=== PATIENT | female | born 1990 | race Caucasian/White ===

== ENCOUNTER 2017-08-23 17:48 | Emergency (ER) | payer MEDICAID ==
[2017-08-23] MEDS ORDERED: LORazepam 2 MG/ML INJ IVP ONE ×2 (17:58→19:04)
[2017-08-23] MEDS ORDERED: NS 1,000 ML IV ONE (17:58)
--- NOTE | 2017-08-23 18:10 | EDPHY ---
H & P Time Seen by Provider: 08/23/17 18:07 HPI/ROS: CHIEF COMPLAINT: Seizure versus possible syncope HISTORY OF PRESENT ILLNESS: 26-year-old female presents to the emergency department by ambulance after having a witnessed possible seizure. The boyfriend at bedside states that the the patient had generalized tonic-clonic activity lasting approximately 5 minutes. She then had a period where she was confused that lasted approximately 10 minutes consistent with being postictal. She did not bite her tongue. She was not incontinent of urine. Approximately 2 months ago she had similar symptoms and was seen at [facility]. Apparently had similar symptoms 2 days prior to that. She had a CT scan of her head which was negative. Her CO2 was normal at 24. They consulted with a neurologist and she was started on Keppra twice daily. Patient states that she stop the Keppra 3 weeks ago because she did not like how it made her feel. She feels nauseous. She does report taking her propranolol as needed for symptoms of anxiety and she thinks that she may have taken this today. She denies a headache. She feels nauseous. She was given Zofran by EMS. Last menstrual period was 1 week ago and denies . REVIEW OF SYSTEMS: Constitutional: No fever, no chills. Eyes: No double or blurry vision. ENT: No sore throat. Respiratory: No cough, no shortness of breath. Cardiac: No chest pain. Gastrointestinal: Nausea. No abdominal pain, vomiting or diarrhea. Genitourinary: No dysuria. Musculoskeletal: No neck or back pain. Skin: No rashes. Neurological: No headache. Past Medical/Surgical History: Seizure [address] scan of her brain Social History: Single Smoking Status: Former smoker Physical Exam: General Appearance: Alert, no distress. Boyfriend at bedside. No physical signs of trauma to her head. She does not smell of alcohol. Eyes: Pupils equal and round. Extraocular motions are all intact. ENT: Mouth: Mucous membranes moist. No tongue abrasion or laceration. Respiratory: No wheezing, rhonchi, or rales, lungs are clear to auscultation. Cardiovascular: Regular rate and rhythm. Gastrointestinal: Abdomen is soft and nontender, no masses, no rebound or guarding, bowel sounds normal. Neurological: Alert and oriented x 3, cranial nerves II through XII grossly intact Skin: Warm and dry, no rashes. Musculoskeletal: Nontender to palpate along the cervical, thoracic or lumbar spine. Neck is supple. Extremities: Full range of motion and no peripheral edema. Psychiatric: Patient is oriented X 3, there is no agitation. Constitutional: Initial Vital Signs Temperature (C) 36.7 C 08/23/17 18:01 Heart Rate 67 08/23/17 18:01 Respiratory Rate 18 08/23/17 18:01 Blood Pressure 107/67 08/23/17 18:01 O2 Sat (%) 91 L 08/23/17 18:01 O2 Delivery Mode Room Air Allergies/Adverse Reactions: No Known Allergies Allergy (Unverified 08/23/17 17:56) Home Medications: Medication Instructions Recorded Adderall 10 MG (*) 08/23/17 Propranolol HCl 08/23/17 Suboxone 4 mg-1 mg Sl Film 08/23/17 Medical Decision Making - Diagnostics EKG Interpretation: EKG reviewed by Dr. Deepika Andrews and revealed normal sinus rhythm without evidence of Brugada syndrome, WPW, or hypertrophic cardiomyopathy. See interpretation in trace master. ED Course/Re-evaluation: 26-year-old female presents to the emergency department by ambulance after having a witnessed seizure by her boyfriend. Laboratory studies reveal CO2 of 18. She was given 1 mg of Ativan IV. Her visit from [facility] was reviewed in [facility] and the benign a normal CT scan of her brain. She was started on Keppra at that time. I spoke with the on-call neurologist, Dr. Charly Lassiter, who recommended giving the patient 1 amp of IV Keppra now and having her continue 500 mg twice daily of Keppra daily until they see her in the office tomorrow or Monday. They will discuss with her alternative medications that she can take for seizures. Patient was comfortable with this plan. She understands that she will not drive a car or operate any machinery until she is cleared by neurologist. She was discharged home with her boyfriend and his mother. Differential Diagnosis: Seizure including but not limited to electrolyte abnormality, alcohol withdrawal , medication noncompliance, head injury, and breakthrough seizure. - Data Points Laboratory Results: Laboratory Results 08/23/17 17:40 08/23/17 17:40 08/23/17 08/23/1717 17:40 17:40 17:40 WBC 4.29 10^3/uL 10^3/uL (3.80-9.50) RBC 4.61 10^6/uL 10^6/uL (4.18-5.33) Hgb 15.2 g/dL g/dL (12.6-16.3) Hct 42.5 % % (38.0-47.0) MCV 92.2 fL fL (81.5-99.8) MCH 33.0 pg pg (27.9-34.1) MCHC 35.8 g/dL g/dL (32.4-36.7) RDW 11.7 % % (11.5-15.2) Plt Count 300 10^3/uL 10^3/uL (150-400) MPV 9.6 fL fL (8.7-11.7) Neut % (Auto) 66.0 % % (39.3-74.2) Lymph % (Auto) 27.7 % % (15.0-45.0) [place] % (Auto) 5.1 % % (4.5-13.0) Eos % (Auto) 0.5 % L % (0.6-7.6) Baso % (Auto) 0.5 % % (0.3-1.7) Nucleat RBC Rel Count 0.0 % % (0.0-0.2) Absolute Neuts (auto) 2.83 10^3/uL 10^3/uL (1.70-6.50) Absolute Lymphs (auto) 1.19 10^3/uL 10^3/uL (1.00-3.00) Absolute Monos (auto) 0.22 10^3/uL L 10^3/uL (0.30-0.80) Absolute Eos (auto) 0.02 10^3/uL L 10^3/uL (0.03-0.40) Absolute Basos (auto) 0.02 10^3/uL 10^3/uL (0.02-0.10) Absolute Nucleated RBC 0.00 10^3/uL 10^3/uL (0-0.01) Immature Gran % 0.2 % % (0.0-1.1) Immature Gran # 0.01 10^3/uL 10^3/uL (0.00-0.10) Sodium 140 mEq/L mEq/L (134-144) Potassium 4.1 mEq/L mEq/L (3.5-5.2) Chloride 102 mEq/L mEq/L (97-110) Carbon Dioxide 18 mEq/l L mEq/l (22-31) Anion Gap 20 mEq/L H mEq/L (8-16) BUN 10 mg/dL mg/dL (7-23) Creatinine 0.5 mg/dL L mg/dL (0.6-1.0) Estimated GFR > 60 Glucose 124 mg/dL H mg/dL (70-100) Calcium 9.4 mg/dL mg/dL (8.5-10.4) Beta HCG, Qual NEGATIVE Medications Given: Discontinued Medications Sodium Chloride (Ns) 1,000 mls @ 0 mls/hr IV EDNOW ONE; Wide Open PRN Reason: Protocol Stop: 08/23/17 17:59 Last Admin: 08/23/17 18:42 Dose: 1,000 mls Levetiracetam 1,000 mg/ Sodium (Chloride) 110 mls @ 440 mls/hr IV EDNOW ONE Stop: 08/23/17 19:46 Last Admin: 08/23/17 20:09 Dose: 110 mls Lorazepam (Ativan Injection) 1 mg IVP EDNOW ONE Stop: 08/23/17 19:05 Last Admin: 08/23/17 19:16 Dose: 1 mg Departure - Departure Disposition: Home, Routine, Self-Care Clinical Impression: Seizure Condition: Fair Instructions: Recurrent Seizures in Adults (ED) Additional Instructions: Call to arrange for a follow-up appointment with Dr. Charly Lassiter to be seen tomorrow Monday to recheck. Tell them that you were seen in the emergency department and told seen for follow-up this week. Continue Keppra 500mg twice daily seen by neurologist. You should not drive a car or go swimming or do any other activities until cleared by neurologist. Referrals: Charly Lassiter, DO [Medical Doctor] - 1-2 days without fail (Neurologist on-call )
[2017-08-23 18:16] LABS: % IMMATURE GRANULYOCYTES 0.2 % (0.0-1.1); ABSOLUTE IMMATURE GRANULOCYTES 0.01 10^3/uL (0.00-0.10); ADD DIFF? NO; ADD MORPH? NO; ADD SCAN? NO; ATYPICAL LYMPHOCYTE FLAG 20 (0-99); FRAGMENT RBC FLAG 30 (0-99); HEMATOCRIT 42.5 % (38.0-47.0); HEMOGLOBIN 15.2 g/dL (12.6-16.3); LEFT SHIFT FLG 0 (0-99); LIPEMIA HEMOLYSIS FLAG 90 (0-99); MEAN CELL HEMOGLOBIN CONCENTR. 35.8 g/dL (32.4-36.7); MEAN CELL VOLUME 92.2 fL (81.5-99.8); MEAN PLATELET VOLUME 9.6 fL (8.7-11.7); PLATELET CLUMPS FLAG 40 (0-99); PLATELET COUNT 300 10^3/uL (150-400); RED BLOOD CELL COUNT 4.61 10^6/uL (4.18-5.33); RED CELL DISTRIBUTION WIDTH 11.7 % (11.5-15.2)
[2017-08-23 18:31] LABS: ANION GAP 20 mEq/L (8-16); CALCIUM 9.4 mg/dL (8.5-10.4); CARBON DIOXIDE 18 mEq/l (22-31); CHLORIDE 102 mEq/L (97-110); CREATININE 0.5 mg/dL (0.6-1.0); GLOMERULAR FILTRATION RATE > 60; GLUCOSE 124 mg/dL (70-100); POTASSIUM 4.1 mEq/L (3.5-5.2); SODIUM 140 mEq/L (134-144)
[2017-08-23] MEDS ORDERED: levETIRAcetam 1,000 MG in NS 100 ML IV ONE (19:32)
--- NOTE | 2017-08-23 19:35 | CPEKG ---
Heart Rate: 71 RR Interval: 845 P-R Interval: 116 QRSD Interval: 96 QT Interval: 420 QTC Interval: 457 P Traphill: 21 QRS Traphill: -9 T Wave Traphill: -31 EKG Severity - ABNORMAL ECG - EKG Impression: SINUS RHYTHM EKG Impression: NONSPECIFIC T ABNORMALITIES, INFERIOR LEADS Electronically Signed By: Deepika Andrews 23-Aug-2017 23:06:02
[2017-08-23 21:26] VITALS: BP 120/70; PULSE 71; RESP 16; TEMP 97.9; O2SAT 95
== END 2017-08-23 21:26 | disposition home or self-care (01) ==
DX: G40.909 Epilepsy, unspecified, not intractable, without status epilepticus (principal); E86.9 Volume depletion, unspecified; Z87.891 Personal history of nicotine dependence
CPT/HCPCS: 96365; J1953; J2060

== ENCOUNTER 2017-09-23 13:06 | Observation (INO) | payer MEDICAID ==
--- NOTE | 2017-09-23 13:05 | EDPHY ---
H & P Constitutional: Initial Vital Signs Temperature (C) 36.3 C 09/23/17 13:26 Heart Rate 72 09/23/17 13:26 Respiratory Rate 20 09/23/17 13:26 Blood Pressure 116/66 09/23/17 13:26 O2 Sat (%) 99 09/23/17 13:26 O2 Delivery Mode Nasal Cannula O2 (L/minute) 2 Allergies/Adverse Reactions: No Known Allergies Allergy (Unverified 08/23/17 17:56) Home Medications: Medication Instructions Recorded Propranolol HCl [Inderal 10mg (*)] 10 mg PO DAILY 08/23/17 Cyclobenzaprine [Flexeril 10 MG 10 mg PO TID PRN 09/23/17 (*)] Fluticasone/Salmeter 250/50Mcg 1 puffs IH BID 09/23/17 [Advair 250/50 (*)] Medical Decision Making ED Course/Re-evaluation: CHIEF COMPLAINT: Fentanyl overdose HISTORY OF PRESENT ILLNESS: The patient is a 23 y/o female arriving via EMS for a possible fentanyl overdose. She took Fentanyl 20 minutes ago and became unconscious after 2 minutes. Her boyfriend called EMS after she lost consciousness. EMS gave her 4 Narcan and established a 16 gauge EJ in her right neck. She became responsive after the Narcan and is currently moving around. She is currently not answering my questions and is agitated. REVIEW OF SYSTEMS: A 10 point review of systems was performed and is negative with the exception of the elements mentioned in the history of present illness. PHYSICAL EXAM: HR, BP, O2 Sat, RR. Temp noted General Appearance: Agitated, alert, well hydrated, appropriate, and non-toxic appearing. Head: Atraumatic without scalp tenderness or obvious injury Eyes: Pupils equal, round, reactive to light and accommodation, EOMI, no trauma , no injection. Ears: Clear bilaterally, no perforation, normal landmarks Nose: Atraumatic, no rhinorrhea, clear. Throat: Mucus membranes moist. Neck: Supple, nontender, no lymphadenopathy. Respiratory: No retractions, no distress, no wheezes, and no accessory muscle use. Lungs are clear to auscultation bilaterally. Cardiovascular: Regular rate and rhythm, no murmurs, rubs, or gallops. Good capillary refill all extremities. Gastrointestinal: Abdomen is soft, nontender, non-distended, no masses, no rebound, no guarding, no peritoneal signs. Musculoskeletal: Normal active ROM of all extremities, atraumatic. Neurological: Alert, appropriate, and interactive. The patient has normal DTRs and non-focal cranial nerves, motor, sensory, and cerebellar exam. Skin: Piloerection, no rashes, good turgor, no nodules on palpation. Past medical history: Seizure Past surgical history: Denies Family history: Denies Social history: Lives in [place], single, works for [employer], polysubstance abuse DIFFERENTIAL DIAGNOSIS: The differential diagnosis for the patient's altered mental status included but was not limited to hypoglycemia, infectious process, electrolyte abnormality, head injury, neurologic process, anemia, cardiac process, and intoxicants. MEDICAL DECISION MAKING: The patient is a 23 y/o female arriving via EMS after becoming unconscious after a fentanyl overdose 20 minutes ago. She was given 4 Narcan by EMS and regained consciousness. On exam she is agitated, not speaking to me, and has piloerection. Plan to give Narcan as needed. BMP, CBC, and labs ordered. 1324: Nurse reports that the patient admits to drinking Fentanyl, but is unsure how much she drank. This Fentanyl was ordered off of the internet from [employer]. The patient and her boyfriend have been on a laureano for 2-3 days. 1404: Consulted with hospitalist service, Dr. Hendricks accepts admission of this patient. - Data Points Laboratory Results: Laboratory Results 09/23/17 13:15 09/23/17 13:15 09/23/17 09/23/17 09/23/17 13:15 13:15 13:15 WBC 3.94 10^3/uL 10^3/uL (3.80-9.50) RBC 3.63 10^6/uL L 10^6/uL (4.18-5.33) Hgb 12.1 g/dL L g/dL (12.6-16.3) Hct 34.4 % L % (38.0-47.0) MCV 94.8 fL fL (81.5-99.8) MCH 33.3 pg pg (27.9-34.1) MCHC 35.2 g/dL g/dL (32.4-36.7) RDW 12.4 % % (11.5-15.2) Plt Count 185 10^3/uL 10^3/uL (150-400) MPV 9.5 fL fL (8.7-11.7) Neut % (Auto) 56.4 % % (39.3-74.2) Lymph % (Auto) 31.5 % % (15.0-45.0) [place] % (Auto) 9.1 % % (4.5-13.0) Eos % (Auto) 1.5 % % (0.6-7.6) Baso % (Auto) 0.5 % % (0.3-1.7) Nucleat RBC Rel Count 0.0 % % (0.0-0.2) Absolute Neuts (auto) 2.22 10^3/uL 10^3/uL (1.70-6.50) Absolute Lymphs (auto) 1.24 10^3/uL 10^3/uL (1.00-3.00) Absolute Monos (auto) 0.36 10^3/uL 10^3/uL (0.30-0.80) Absolute Eos (auto) 0.06 10^3/uL 10^3/uL (0.03-0.40) Absolute Basos (auto) 0.02 10^3/uL 10^3/uL (0.02-0.10) Absolute Nucleated RBC 0.00 10^3/uL 10^3/uL (0-0.01) Immature Gran % 1.0 % % (0.0-1.1) Immature Gran # 0.04 10^3/uL 10^3/uL (0.00-0.10) Sodium 141 mEq/L mEq/L (134-144) Potassium 3.8 mEq/L mEq/L (3.5-5.2) Chloride 103 mEq/L mEq/L (97-110) Carbon Dioxide 22 mEq/l mEq/l (22-31) Anion Gap 16 mEq/L mEq/L (8-16) BUN 10 mg/dL mg/dL (7-23) Creatinine 0.7 mg/dL mg/dL (0.6-1.0) Estimated GFR > 60 Glucose 272 mg/dL H mg/dL (70-100) Calcium 8.9 mg/dL mg/dL (8.5-10.4) Beta HCG, Qual NEGATIVE Ethyl Alcohol < 10 mg/dL mg/dL (0-10) Departure - Departure Disposition: [facility] Inpatient Acute Clinical Impression: Accidental fentanyl overdose Qualifiers: Encounter type: initial encounter Qualified Code(s): T40.4X1A - Poisoning by other synthetic narcotics, accidental (unintentional), initial encounter Condition: Fair Report Scribed for: Alex Gonzalez Report Scribed by: Melly Murillo Date of Report: 09/23/17 Time of Report: 13:05
[2017-09-23 13:36] LABS: ABSOLUTE IMMATURE GRANULOCYTES 0.04 10^3/uL (0.00-0.10); ADD DIFF? NO; ADD MORPH? NO; ADD SCAN? NO; ATYPICAL LYMPHOCYTE FLAG 10 (0-99); FRAGMENT RBC FLAG 0 (0-99); HEMATOCRIT 34.4 % (38.0-47.0); HEMOGLOBIN 12.1 g/dL (12.6-16.3); LEFT SHIFT FLG 0 (0-99); LIPEMIA HEMOLYSIS FLAG 90 (0-99); MEAN CELL HEMOGLOBIN 33.3 pg (27.9-34.1); MEAN CELL HEMOGLOBIN CONCENTR. 35.2 g/dL (32.4-36.7); MEAN CELL VOLUME 94.8 fL (81.5-99.8); MEAN PLATELET VOLUME 9.5 fL (8.7-11.7); PLATELET CLUMPS FLAG 0 (0-99); PLATELET COUNT 185 10^3/uL (150-400); RED BLOOD CELL COUNT 3.63 10^6/uL (4.18-5.33); RED CELL DISTRIBUTION WIDTH 12.4 % (11.5-15.2)
[2017-09-23 13:49] LABS: ANION GAP 16 mEq/L (8-16); CALCIUM 8.9 mg/dL (8.5-10.4); CARBON DIOXIDE 22 mEq/l (22-31); CHLORIDE 103 mEq/L (97-110); CREATININE 0.7 mg/dL (0.6-1.0); ETHANOL SERUM < 10 mg/dL (0-10); GLOMERULAR FILTRATION RATE > 60; GLUCOSE 272 mg/dL (70-100); POTASSIUM 3.8 mEq/L (3.5-5.2); SODIUM 141 mEq/L (134-144)
[2017-09-23] MEDS ORDERED: ACETAMINOPHEN 325 MG TAB PO PRN (14:35)
[2017-09-23] MEDS ORDERED: ONDANSETRON DISINTEGRATING 4 MG TAB PO PRN (14:35)
[2017-09-23] MEDS ORDERED: NALOXONE HCL 0.4 MG/ML INJ IVP PRN (14:39)
--- NOTE | 2017-09-23 15:40 | GHP ---
[f rep st] HISTORY AND PHYSICAL DATE OF ADMISSION: 09/23/2017 CHIEF COMPLAINT: Respiratory depression. HISTORY OF PRESENT ILLNESS: The patient is a 26-year-old female with past medical history notable only for syncope/seizure event one month ago, presenting with unintentional Fentanyl overdose. The patient was found by her boyfriend, appearing unresponsive. EMS was called and they gave her one dose of Narcan (per marketing and communications officer at the bedside). The patient was briefly revived , then later more somnolent, given 2 more doses of Narcan in the ER. She reports she started taking Fentanyl by mouth mixed in fluid, approximately 12: 30p today. No prior OD history. Denies any other drug use today. No alcohol use. No nicotine use. "Nicorette would have been a better choice today." Hx of Heroin addiction, on Subutex, but stopped 1 month ago. She did well until finals approached and she got stressed and started Fentanyl just 2 days ago. She reports she has finals tomorrow and would like to get back to studying. Poor appetite, "i dont like food". No nausea, vomiting today. No pain other than IV in her right neck. Denies intentional OD, SI/HI. REVIEW OF SYSTEMS: A complete 10-point review of systems was negative, except for intermittent nausea while she was on Subutex, and intermittent muscle spasms (but nothing recent). Otherwise, review of systems was negative, including chest pain, headaches, visual changes, or recent seizure activity. PAST MEDICAL HISTORY: Notable only for seizure (Per pt it was syncope induced) , and very short use of Keppra. PAST SURGICAL HISTORY: No surgical history. ALLERGIES: No allergies, other than environmental. FAMILY HISTORY: Notable for alcoholism and occasional drug dependence. 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 No tobacco use or alcohol use at all. History of heroin use and current Fentanyl. MEDICATIONS: p.r.n. Zofran, propranolol, Fluticasone, Flexeril. PHYSICAL EXAMINATION: VITAL SIGNS: 115/66, 82, HR 72, RR16 while at the bedside. O2 99% on 2 L, 95% RA. Afebrile 36.3. GENERAL: Pleasant, no acute physical distress, slurred her words and appears slightly under the influence but still answers questions candidly and appropriately. HEENT: Pupils are approximately 6 mm bilaterally, responsive to light, anicteric. No nasal discharge, no nasal erosions. No cervical lymphadenopathy. HEART: Rate regular. No murmurs, rubs or gallops. RESPIRATORY: Clear without wheezes or rhonchi. Currently using full excursions to breath. ABDOMEN: Soft, nontender. Normal bowel sounds. EXTREMITIES: No swelling, NEURO: moving all extremities within normal limits, pupils equal, reactive. The patient was not stood up to evaluate her gait. SKIN: No rash. No track olivera. OBJECTIVE: Labs notable for normal white blood cell count 3.94, very mild anemia, with hemoglobin of 12.1, normal platelets. Chemistry is normal with the exception of elevated glucose at 272, creatinine is 0.7. Alcohol level less than 10. Drug screen not returned. ASSESSMENT: A 26-year-old female with history of syncope induced seizure, presents for an unintentional Fentanyl overdose, after ingesting Fentanyl by mouth, unknown quantity. The patient has been given 3 doses of Narcan, currently alert, oriented, and maintaining her 02 sat. Given she required multiple narcan doses and had an oral ingestion it is unclear if respiratory depression will return so planning OBS admit. PLAN: Fentanyl overdose: Admit to observation. Bedside O2 and EKG monitoring, Narcan p.r.n. History of seizure: The patient denies this is related to any kind of drug use and it may have been related to a copper IUD at that time. Encouraged the patient to eat and drink today, and as long as she remains normotensive, would not pursue any further workup at this time. Full code. DISCHARGE PLAN: Pending patient's stability off further doses of Narcan. /[id number]/MODL MTDD
[2017-09-23] MEDS: CYCLOBENZAPRINE 10 MG TAB PO PRN ×2 (17:43→23:49)
[2017-09-23] MEDS: FLUTICASONE/SALMETER 250/50MCG DISKUS IH SCH (23:13)
[2017-09-24] MEDS: FLUTICASONE/SALMETER 250/50MCG DISKUS IH SCH (08:46)
[2017-09-24] MEDS ORDERED: PROPRANOLOL HCL 10 MG TAB PO SCH (09:00)
[2017-09-24 09:32] VITALS: PULSE 91; TEMP 99
--- NOTE | 2017-09-24 10:54 | PDDCSUM ---
Discharge Summary Discharge Summary: 26 yo female who was admitted due to recreational overdose with Fentanyl which she reports she bought from [employer] via mail. She as admitted into the ICU. She did not have any resp failure. VSS normalized. She is now on RA and wants discharge. She has a hx of heroin abuse. Per nursing report, she and her boyfriend both shot up likely heroin in her room yesterday. Her boyfriend was found on the floor of the visitor bathroom unresponsive with syringe in place. He was sent to the E.D for evaluation. Treatment options will be provided by social service worker, but doubt that she is ready or wants to quit at this time. DDX: -Heroin abuse -Fentanyl overdose -Polysubstance abuse Exam: on RA NAD AAOX3 RRR CTA B S/NT/ND NO LE EDEMA MEDS: SEE MED REC. NO NEW MED WERE GIVEN F/U: WITH PCP IN ONE WEEK IF SHE IS WILLING TO TOTAL TIME SPENT ON DISCHARGE IS 35 MINS PLAN D/W MULTIPLE MEMBERS OF THE ICU TEAM
[2017-09-24 11:40] VITALS: BP 158/89; RESP 28; O2SAT 95
== END 2017-09-24 11:30 | disposition home or self-care (01) ==
LOC: EDUNIT# → INTOOBSV 14:06 → EEVIPCON 14:06 → F2N 15:04
PROVIDERS: ADMIT Internal Medicine Geriatric Medicine; ATTEND Internal Medicine Geriatric Medicine
DX: T40.4X1A Poisoning by other synthetic narcotics, accidental (unintentional), initial encounter (principal); F11.10 Opioid abuse, uncomplicated
CPT/HCPCS: G0378 ×2; 80305; G0480

== ENCOUNTER 2018-05-10 23:44 | Emergency (ER) | payer MEDICAID, OTHER ==
--- NOTE | 2018-05-11 00:16 | EDPHY ---
H & P Stated Complaint: ETOH - Poly drug use Time Seen by Provider: 05/11/18 00:15 HPI/ROS: HPI CHIEF COMPLAINT: Polysubstance abuse, alcohol, heroin, marijuana HISTORY OF PRESENT ILLNESS: 27-year-old female, she presents emergency room by EMS and police for polysubstance abuse. She was drinking alcohol this evening had multiple glasses of wine. Additionally shot up IV heroin, presents emergency room intoxicated and sleepy. She was due to go to the [facility], however her boyfriend is there and they did not want a couple there. The boy went went to the [facility] and she came to the ER. Upon arrival she is alert however sleepy, appears intoxicated, slurring her speech. Past Medical History: Denies significant medical history Past Surgical History: Denies significant surgical history Social History: Polysubstance abuse Family History: Noncontributory ROS REVIEW OF SYSTEMS: A comprehensive 10 point review of systems is otherwise negative aside from elements mentioned in the history of present illness. Exam Constitutional intoxicated, sleepy, triage nursing summary reviewed, vital signs reviewed, awake/alert. Eyes normal conjunctivae and sclera, EOMI, PERRLA. HENT normal inspection, atraumatic, moist mucus membranes, no epistaxis, neck supple/ no meningismus, no raccoon eyes. Respiratory clear to auscultation bilaterally, normal breath sounds, no respiratory distress, no wheezing. Cardiovascular rate normal, regular rhythm, no murmur, no edema, distal pulses normal. Gastrointestinal soft, non-tender, no rebound, no guarding, normal bowel sounds, no distension, no pulsatile mass. Genitourinary no CVA tenderness. Musculoskeletal no midline vertebral tenderness, full range of motion, no calf swelling, no tenderness of extremities, no meningismus, good pulses, neurovascularly intact. Skin pink, warm, & dry, no rash, skin atraumatic. Neurologic sleepy, awake, alert and oriented x 3, AAOx3, moves all 4 extremities equally, motor intact, sensory intact, CN II-XII intact, normal cerebellar, normal vision, intoxicated, slurring speech. Psychiatric normal mood/affect. Heme/Lymph/Immune no lymphadenopathy. Differential Diagnosis: Includes but is not limited to in a particular order polysubstance abuse, acute alcohol intoxication, alcohol abuse, heroin abuse, heroin overdose. Medical Decision Making: Plan for this patient IV establishment blood draw, IV fluid bolus, shelter monitor, pulse ox, drug screen, alcohol level watch for worsening sedation. Monitor for sobriety. Once sober patient be discharged home. Re-evaluation: Patient's serum alcohol level noted to be 0 however patient came in intoxicated sleepy. Her drug screen is positive for benzos, opioids and marijuana this explains her lethargy. 0523: Patient re-examined at this time she was up ambulating and answering questions appropriately. She did go to the bathroom. She is now back in bed resting. 0631: Patient is still sobering from her benzo marijuana and alcohol. Patient still needs more time for sobriety. Signed over at 7:00 a.m. Shift change to Dr. Lebron. Source: Patient, Police, EMS - Personal History Current Tetanus/Diphtheria Vaccine: Unsure Current Tetanus Diphtheria and Acellular Pertussis (TDAP): Unsure - Medical/Surgical History Hx Asthma: Yes Hx Chronic Respiratory Disease: No Hx Diabetes: No Hx Cardiac Disease: No Hx Renal Disease: No Hx Cirrhosis: No Hx Alcoholism: No Hx HIV/AIDS: No Hx Splenectomy or Spleen Trauma: No Other PMH: seizures, opioid addiction, fentanyl OD 2016 - Social History Smoking Status: Former smoker Constitutional: Initial Vital Signs Temperature (C) 37.0 C 05/10/18 23:51 Heart Rate 112 H 05/10/18 23:51 Respiratory Rate 16 05/10/18 23:51 Blood Pressure 122/81 H 05/10/18 23:51 O2 Sat (%) 96 05/10/18 23:51 O2 Delivery Mode Room Air Allergies/Adverse Reactions: No Known Allergies Allergy (Unverified 08/23/17 17:56) Home Medications: Medication Instructions Recorded Propranolol HCl [Inderal 10mg (*)] 10 mg PO DAILY 08/23/17 Cyclobenzaprine [Flexeril 10 MG 10 mg PO TID PRN 09/23/17 (*)] Fluticasone/Salmeter 250/50Mcg 1 puffs IH BID 09/23/17 [Advair 250/50 (*)] Medical Decision Making - Data Points Laboratory Results: Laboratory Results 05/11/18 00:33 05/11/18 00:33 05/11/18 05/11/18 05/11/18 04:45 00:33 00:33 WBC RBC Hgb Hct MCV MCH MCHC RDW Plt Count MPV Neut % (Auto) Lymph % (Auto) [place] % (Auto) Eos % (Auto) Baso % (Auto) Nucleat RBC Rel Count Absolute Neuts (auto) Absolute Lymphs (auto) Absolute Monos (auto) Absolute Eos (auto) Absolute Basos (auto) Absolute Nucleated RBC Immature Gran % Immature Gran # Sodium 137 mEq/L mEq/L (135-145) Potassium 3.8 mEq/L mEq/L (3.3-5.0) Chloride 105 mEq/L mEq/L (97-110) Carbon Dioxide 24 mEq/l mEq/l (22-31) Anion Gap 8 mEq/L mEq/L (8-16) BUN 17 mg/dL mg/dL (7-23) Creatinine 0.7 mg/dL mg/dL (0.6-1.0) Estimated GFR > 60 Glucose 99 mg/dL mg/dL (70-100) Calcium 9.6 mg/dL mg/dL (8.5-10.4) Beta HCG, Qual NEGATIVE Urine Opiates Screen NON-NEGATIVE H (NEGATIVE) Urine Barbiturates NEGATIVE (NEGATIVE) Ur Phencyclidine Scrn NEGATIVE (NEGATIVE) Ur Amphetamine Screen NEGATIVE (NEGATIVE) U Benzodiazepines Scrn NON-NEGATIVE H (NEGATIVE) Urine Cocaine Screen NEGATIVE (NEGATIVE) U Marijuana (THC) Screen NON-NEGATIVE H (NEGATIVE) Ethyl Alcohol < 10 mg/dL mg/dL (0-10) 05/11/18 00:33 WBC 3.67 10^3/uL L 10^3/uL (3.80-9.50) RBC 3.68 10^6/uL L 10^6/uL (4.18-5.33) Hgb 12.0 g/dL L g/dL (12.6-16.3) Hct 35.3 % L % (38.0-47.0) MCV 95.9 fL fL (81.5-99.8) MCH 32.6 pg pg (27.9-34.1) MCHC 34.0 g/dL g/dL (32.4-36.7) RDW 12.5 % % (11.5-15.2) Plt Count 246 10^3/uL 10^3/uL (150-400) MPV 8.9 fL fL (8.7-11.7) Neut % (Auto) 62.9 % % (39.3-74.2) Lymph % (Auto) 24.0 % % (15.0-45.0) [place] % (Auto) 11.4 % % (4.5-13.0) Eos % (Auto) 1.1 % % (0.6-7.6) Baso % (Auto) 0.3 % % (0.3-1.7) Nucleat RBC Rel Count 0.0 % % (0.0-0.2) Absolute Neuts (auto) 2.31 10^3/uL 10^3/uL (1.70-6.50) Absolute Lymphs (auto) 0.88 10^3/uL L 10^3/uL (1.00-3.00) Absolute Monos (auto) 0.42 10^3/uL 10^3/uL (0.30-0.80) Absolute Eos (auto) 0.04 10^3/uL 10^3/uL (0.03-0.40) Absolute Basos (auto) 0.01 10^3/uL L 10^3/uL (0.02-0.10) Absolute Nucleated RBC 0.00 10^3/uL 10^3/uL (0-0.01) Immature Gran % 0.3 % % (0.0-1.1) Immature Gran # 0.01 10^3/uL 10^3/uL (0.00-0.10) Sodium Potassium Chloride Carbon Dioxide Anion Gap BUN Creatinine Estimated GFR Glucose Calcium Beta HCG, Qual Urine Opiates Screen Urine Barbiturates Ur Phencyclidine Scrn Ur Amphetamine Screen U Benzodiazepines Scrn Urine Cocaine Screen U Marijuana (THC) Screen Ethyl Alcohol Medications Given: Discontinued Medications Sodium Chloride (Ns) 1,000 mls @ 0 mls/hr IV ONCE ONE PRN Reason: Wide Open Stop: 05/11/18 00:19 Last Admin: 05/11/18 00:44 Dose: Not Given Departure - Departure Disposition: Home, Routine, Self-Care Clinical Impression: Polysubstance abuse Condition: Good Instructions: Polysubstance Abuse (ED) Referrals: Patient,NotPresent [Primary Care Provider] - As per Instructions
[2018-05-11] MEDS ORDERED: NS 1,000 ML IV ONE ×2 (00:18→07:08)
[2018-05-11 00:40] LABS: PLATELET COUNT 246 10^3/uL (150-400)
[2018-05-11 04:39] VITALS: BP 128/74
== END 2018-05-11 08:00 | disposition home or self-care (01) ==
LOC: EEVIPCON 23:44
DX: F10.10 Alcohol abuse, uncomplicated (principal); F11.10 Opioid abuse, uncomplicated; F12.10 Cannabis abuse, uncomplicated
CPT/HCPCS: 80305; G0480

== ENCOUNTER 2018-10-01 21:36 | Emergency (ER) | payer SELFPAY ==
[2018-10-01] MEDS ORDERED: TDAP ADULT 0.5 ML INJ (BOOSTRIX) IM ONE (21:51)
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
[2018-10-01 21:56] VITALS: BP 108/60
== END 2018-10-01 22:18 | disposition home or self-care (01) ==
LOC: EDUNIT#
PROC: 0HQEXZZ Repair Left Lower Arm Skin, External Approach (ICD-10-PCS; principal; 2018-10-01)
DX: S61.512A Laceration without foreign body of left wrist, initial encounter (principal); G40.909 Epilepsy, unspecified, not intractable, without status epilepticus; F11.20 Opioid dependence, uncomplicated; W26.8XXA Contact with other sharp object(s), not elsewhere classified, initial encounter; Y92.9 Unspecified place or not applicable; Y93.9 Activity, unspecified; Y99.9 Unspecified external cause status; Z87.891 Personal history of nicotine dependence

== ENCOUNTER 2018-10-02 16:48 | Inpatient (IN) | payer MEDICAID ==
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
[2018-10-02 17:32] LABS: PLATELET COUNT 228 10^3/uL (150-400)
[2018-10-02] MEDS ORDERED: IBUPROFEN 600 MG TAB PO ONE (20:59)
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
--- NOTE | 2018-10-02 23:39 | ASMTTCLDSP ---
TLC Discharge Disposition Disposition: Answers: Admit Discharge Concerns/Recommendations: Notes: In consultation with [facility] ED physician, Dale Montes MD and on-call psychiatrist, Michelle Morales MD, both concurred that pt appears to meet 27-65 criteria requiring psychiatric hospitalization as pt appears to be at risk of harm to self due to a mental illness condition. Pt was given the 3N prohibited belongings list while in the ED. For inpatient Michelle Morales MD admission, the following psychiatrist agreed to accept patient for [facility] Date Signed: 10/02/2018 11:38 PM Electronically Signed By:Antonieta Arnold
[2018-10-03] MEDS ORDERED: MAG HYDROX/AL HYDROX/SIMETH 30 ML UDCUP PO PRN (00:08)
[2018-10-03] MEDS ORDERED: MAGNESIUM HYDROXIDE 30 ML UDCUP PO PRN (00:08)
[2018-10-03] MEDS ORDERED: OLANZapine 5 MG TAB PO PRN (00:10)
[2018-10-03] MEDS: ACETAMINOPHEN 325 MG TAB PO PRN ×3 (00:16→20:35)
[2018-10-03] MEDS: LORazepam 0.5 MG TAB PO PRN (00:17)
[2018-10-03] MEDS: NICOTINE POLACRILEX 2 MG GUM B PRN ×6 (00:25→20:37)
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
[2018-10-03] MEDS: IBUPROFEN 200 MG TAB PO PRN ×2 (09:19→16:37)
[2018-10-03] MEDS: FLUTICASONE/SALMETER 250/50MCG DISKUS IH SCH ×2 (10:16→20:34)
--- NOTE | 2018-10-03 11:56 | ASMTBHDC ---
Notes Note: Notes: CC was able to confirm client's discharge follow up care with [facility]: Follow up with: [facility] [address] [place] [address] 2nd Floor, [facility] Intake Appt: MondayOctober 12 (10/12/18) at 2:30pm with Wilda (at the address above, 2nd floor). Date Signed: 10/03/2018 11:55 AM Electronically Signed By:Abdon Graves
[2018-10-03] MEDS ORDERED: PNEUMOCOCCAL 0.5ML VACCINE VIAL (PNEUMOVAX 23) IM ONE (13:51)
--- NOTE | 2018-10-03 15:38 | ASMTCMCOM ---
CM Note CM Note Notes: CC faxed letter to [facility] ; asking the Track Mechanic to excuse client for her court date due to still being inpatient, etc.* Date Signed: 10/03/2018 03:37 PM Electronically Signed By:Abdon Graves
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
--- NOTE | 2018-10-03 17:49 | PDMN ---
Medical Necessity Medical necessity: Pt meets inpt criteria per MD order and [id number], Major Depressive Disorder, Adult: Inpatient Care. 27 y/o admitted on M1 hold, possible suicidality, w/major depressive disorder, single episode, severe, also PTSD by hx. Pt requires inpt psychiatric hospitalization for further eval/ treatment of above.
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
[2018-10-03] MEDS ORDERED: CYCLOBENZAPRINE 10 MG TAB PO SCH (21:00)
[2018-10-04] MEDS: IBUPROFEN 200 MG TAB PO PRN (07:39)
[2018-10-04] MEDS: LORazepam 0.5 MG TAB PO PRN ×3 (07:47→16:42)
[2018-10-04] MEDS: FLUTICASONE/SALMETER 250/50MCG DISKUS IH SCH ×3 (08:07→22:31)
[2018-10-04] MEDS: NICOTINE POLACRILEX 2 MG GUM B PRN ×4 (11:12→22:29)
[2018-10-04] MEDS ORDERED: SUMAtriptan 6 MG/0.5 ML VIAL SC ONE ×2 (11:22→12:13)
[2018-10-04] MEDS: ONDANSETRON DISINTEGRATING 4 MG TAB PO PRN (12:23)
--- NOTE | 2018-10-04 14:41 | ASMTCMCOM ---
CM Note CM Note Notes: CC was able to contact [facility] ([phone]) and speak to her directly, CC encouraged MOJose to come out to [place] to help support client and advocate on her behalf given the intensity of her alleged felony charges, etc. 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 [facility] was provided with all necessary hospital contact information, etc. Date Signed: 10/04/2018 02:40 PM Electronically Signed By:Abdon Graves
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
[2018-10-05] MEDS: FLUTICASONE/SALMETER 250/50MCG DISKUS IH SCH ×2 (08:34→19:18)
[2018-10-05] MEDS: ONDANSETRON DISINTEGRATING 4 MG TAB PO PRN (08:34)
[2018-10-05] MEDS: LORazepam 0.5 MG TAB PO PRN ×3 (08:35→18:15)
[2018-10-05] MEDS: NICOTINE POLACRILEX 2 MG GUM B PRN ×3 (10:42→17:31)
[2018-10-05] MEDS: IBUPROFEN 200 MG TAB PO PRN (10:42)
[2018-10-05] MEDS: OXcarbazepine 300 MG TAB PO SCH ×2 (12:09→19:18)
--- NOTE | 2018-10-05 13:05 | ASMTCMCOM ---
CM Note CM Note Notes: CC checked in with ct. who said that she is doing OK. Ct. reported that she is very anxious. Per ct. MOC is likely to come to [place] on Mon. to help her pack her belongings and clear her apartment. Ct. is planning on attending court and leave [place] with her mother ESTEPHANIE pending court outcome. Discuss with ct. [facility] and services at [facility] if she stays in [facility]. CC called [facility] Enrique who reported that she is planning on coming to [facility] on 10/10. Let [facility] know that ct. may be discharged prior to her arrival to [facility]. [facility] requested to speak with Dr. Li as she believes that if ct. starts new meds. she will have to be monitored on the unit for several days. Date Signed: 10/05/2018 01:04 PM Electronically Signed By:Gia Gustafson
--- NOTE | 2018-10-05 15:05 | SOAPPROG ---
SOAP Progress Note Assessment/Plan: Assessment: Plan: 10/04/18 17:09 Opening up more. Will await mother's travel plans and continue to provide supportive, safe environment for pt. 10/05/18 15:09 Anxiety/mood: Remains quite anxious. This is clearly a chronic condition. Will start Trileptal at low dose of 150mg BID, monitor. Subjective: Pt seen, discussed with staff. Reports feeling "anxious". 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 She states she will typically wake up and vomit due to this anxiety. She is taking Zofran with good effect for the nausea. Discussed various possible treatments for the generalized anxiety. She states the SSRI's have not been helpful and that she doesn't do well on antidepressants in general. She has taken benzo's, but notes rather rapid tolerance and fear of abuse potential. She is agreeable to a trial of a OTIS-active anticonvulsant and we discussed the options for that. She prefers a trial of Trileptal. The risks, benefits and alternatives of this are reviewed with her. She took Lamictal and Keppra when she was having seizures and states she felt calmer, but also excessively sedated and clouded mentally. Objective: Vital Signs Temp Pulse Resp BP Pulse Ox 36.8 C 99 14 119/67 96 10/05/18 06:00 10/05/18 06:00 10/05/18 06:00 10/05/18 06:00 10/05/18 06:00 MSE: Well-groomed, pleasant and coop. Affect is brighter, though anxious. Mood is "anxious, definitely not depressed." TP is linear. TC reveals no psychosis. Denies SI. - Time Spent With Patient Time Spent With Patient: 25" ICD10 Worksheet Patient Problems: Problems Problem Status Onset Severe major depression Acute Suicidal ideation Acute Accidental fentanyl overdose Acute
[2018-10-06] MEDS: LORazepam 0.5 MG TAB PO PRN ×3 (06:50→18:57)
[2018-10-06] MEDS: ONDANSETRON DISINTEGRATING 4 MG TAB PO PRN (06:51)
[2018-10-06] MEDS: FLUTICASONE/SALMETER 250/50MCG DISKUS IH SCH ×2 (08:37→19:32)
[2018-10-06] MEDS: OXcarbazepine 300 MG TAB PO SCH ×2 (08:37→18:55)
[2018-10-06] MEDS: IBUPROFEN 200 MG TAB PO PRN ×2 (09:37→18:20)
[2018-10-06] MEDS: NICOTINE POLACRILEX 2 MG GUM B PRN ×4 (09:47→17:38)
--- NOTE | 2018-10-06 15:08 | ASMTBHDC ---
Notes Note: Notes: The patient reported that the medication relieved her physical pain although she remains anxious. She reported difficulty sleeping including "waking every hour" overnight. She was tearful during the interaction with this ticket writer. The patient reported that her mother will be in [place] on Monday (10/08/18) at the earliest or Monday (10/10/18) at the latest. She has not confirmed when she will arrive to support the patient. Date Signed: 10/06/2018 03:08 PM Electronically Signed By:Hazel Solorio
--- NOTE | 2018-10-06 17:26 | SOAPPROG ---
SOAP Progress Note Assessment/Plan: Assessment: Per Dr. Li's note: 10/04/18 17:09 Opening up more. Will await mother's travel plans and continue to provide supportive, safe environment for pt. 10/05/18 15:09 Anxiety/mood: Remains quite anxious. This is clearly a chronic condition. Will start Trileptal at low dose of 150mg BID, monitor. Subjective: Pt seen, discussed with staff. Reports feeling "anxious". 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 She states she will typically wake up and vomit due to this anxiety. She is taking Zofran with good effect for the nausea. Discussed various possible treatments for the generalized anxiety. She states the SSRI's have not been helpful and that she doesn't do well on antidepressants in general. She has taken benzo's, but notes rather rapid tolerance and fear of abuse potential. She is agreeable to a trial of a OTIS-active anticonvulsant and we discussed the options for that. She prefers a trial of Trileptal. The risks, benefits and alternatives of this are reviewed with her. She took Lamictal and Keppra when she was having seizures and states she felt calmer, but also excessively sedated and clouded mentally. Plan: 10/06/18 17:23 1. Patient says she thought Trileptal was a "general purpose" med for "whatever my mental health needs." MD tried to explain how it works as a mood stabilizer. She states it has helped to "slow down my thoughts." Patient also says it "got rid of constant tension and in my neck." 2. Patient says she has "terrible sleep anxiety," however, staff report patient slept 8 hrs last night. She claims she woke up "every hour," but staff did not report that. 3. Patient agrees to trial of melatonin for insomnia. She says she has taken before with good effect. 4. MOC is supposed to arrive "Monday at earliest" or "Monday at latest." Patient plans to return with MOC to [place]. 5. VOL Subjective: Patient sitting in chair in front of TV. Patient says she thought Trileptal was a "general purpose" med for "whatever my mental health needs." MD tried to explain how it works as a mood stabilizer. She states it has helped to "slow down my thoughts." Patient also says it "got rid of constant tension and in my neck." Patient says she has "terrible sleep anxiety," however, staff report patient slept 8 hrs last night. She claims she woke up "every hour," but staff did not report that. Patient agrees to trial of melatonin for insomnia. She says she has taken before with good effect. Objective: Vital Signs Temp Pulse Resp BP Pulse Ox 36.9 C 118 H 16 109/68 98 10/06/18 06:00 10/06/18 06:00 10/06/18 06:00 10/06/18 06:00 10/06/18 06:00 MSE: Affect: Irritable Mood: "OK" TP: Linear TC: Denies any SI/HI, no paranoia Insight/Judgment: Poor - Time Spent With Patient Time Spent With Patient: 15" - Pending Discharge Pending Discharge Within 24 Hours: No Pending Discharge Within 48 Hours: No ICD10 Worksheet Patient Problems: Problems Problem Status Onset Severe major depression Acute Suicidal ideation Acute Accidental fentanyl overdose Acute
[2018-10-06] MEDS: MELATONIN 3 MG TAB PO PRN (19:32)
[2018-10-07] MEDS: LORazepam 0.5 MG TAB PO PRN ×3 (06:13→20:48)
[2018-10-07] MEDS: ONDANSETRON DISINTEGRATING 4 MG TAB PO PRN (06:13)
[2018-10-07] MEDS: FLUTICASONE/SALMETER 250/50MCG DISKUS IH SCH ×2 (08:52→19:24)
[2018-10-07] MEDS: NICOTINE POLACRILEX 2 MG GUM B PRN ×4 (08:52→19:26)
[2018-10-07] MEDS: OXcarbazepine 300 MG TAB PO SCH ×2 (08:52→19:24)
[2018-10-07] MEDS: IBUPROFEN 200 MG TAB PO PRN (12:01)
--- NOTE | 2018-10-07 17:38 | SOAPPROG ---
SOAP Progress Note Assessment/Plan: Assessment: Per Dr. Li's note: 10/04/18 17:09 Opening up more. Will await mother's travel plans and continue to provide supportive, safe environment for pt. 10/05/18 15:09 Anxiety/mood: Remains quite anxious. This is clearly a chronic condition. Will start Trileptal at low dose of 150mg BID, monitor. Subjective: Pt seen, discussed with staff. Reports feeling "anxious". 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 She states she will typically wake up and vomit due to this anxiety. She is taking Zofran with good effect for the nausea. Discussed various possible treatments for the generalized anxiety. She states the SSRI's have not been helpful and that she doesn't do well on antidepressants in general. She has taken benzo's, but notes rather rapid tolerance and fear of abuse potential. She is agreeable to a trial of a OTIS-active anticonvulsant and we discussed the options for that. She prefers a trial of Trileptal. The risks, benefits and alternatives of this are reviewed with her. She took Lamictal and Keppra when she was having seizures and states she felt calmer, but also excessively sedated and clouded mentally. Plan: 10/06/18 17:23 1. Patient says she thought Trileptal was a "general purpose" med for "whatever my mental health needs." MD tried to explain how it works as a mood stabilizer. She states it has helped to "slow down my thoughts." Patient also says it "got rid of constant tension and in my neck." 2. Patient says she has "terrible sleep anxiety," however, staff report patient slept 8 hrs last night. She claims she woke up "every hour," but staff did not report that. 3. Patient agrees to trial of melatonin for insomnia. She says she has taken before with good effect. 4. MOC is supposed to arrive "Monday at earliest" or "Monday at latest." Patient plans to return with MOC to [place]. 5. VOL 10/07/18 17:35 1. Patient denies any physical or emotional complaints. 2. Waiting for MOC to arrive in [place] to accompany patient back to [place]. 3. Patient reports MO is setting up appointments with MH providers in [place]. 4. Patient was worried about getting enough sleep and requested melatonin last night. She slept 10 hrs. 5. Voluntary Subjective: Patient sitting in chair in front of TV laughing and smiling with peers. She is engaged in conversation and playing games with several peers. She has attended group therapy today. Her affect is brighter a/e/b smiling more and more engaged. Denies any SI/HI. Objective: Vital Signs Temp Pulse Resp BP Pulse Ox 36.6 C 108 H 16 107/72 96 10/07/18 06:00 10/07/18 06:00 10/07/18 06:00 10/07/18 06:00 10/07/18 06:00 MSE: Affect: Brighter, smiling Mood: "OK" TP: Linear TC: Denies any SI/HI, no paranoia Insight/Judgment: Improving - Time Spent With Patient Time Spent With Patient: 15" - Pending Discharge Pending Discharge Within 24 Hours: No Pending Discharge Within 48 Hours: No ICD10 Worksheet Patient Problems: Problems Problem Status Onset Severe major depression Acute Suicidal ideation Acute Accidental fentanyl overdose Acute
[2018-10-07] MEDS: MELATONIN 3 MG TAB PO PRN (20:49)
[2018-10-08] MEDS: LORazepam 0.5 MG TAB PO PRN (05:35)
[2018-10-08] MEDS: ONDANSETRON DISINTEGRATING 4 MG TAB PO PRN (05:35)
[2018-10-08 07:07] VITALS: BP 119/75
[2018-10-08] MEDS: OXcarbazepine 300 MG TAB PO SCH (08:43)
[2018-10-08] MEDS: FLUTICASONE/SALMETER 250/50MCG DISKUS IH SCH (08:43)
[2018-10-08] MEDS: NICOTINE POLACRILEX 2 MG GUM B PRN (10:36)
[2018-10-08] MEDS: IBUPROFEN 200 MG TAB PO PRN (10:36)
[2018-10-08] MEDS: ACETAMINOPHEN 325 MG TAB PO PRN (12:49)
== END 2018-10-08 14:32 | disposition home or self-care (01) | DRG 751 ==
LOC: BBEH 23:15
PROVIDERS: ADMIT Psychiatry & Neurology Behavioral Neurology & Neuropsychiatry; ATTEND Psychiatry & Neurology Behavioral Neurology & Neuropsychiatry
DX: F32.2 Major depressive disorder, single episode, severe without psychotic features (principal); R45.851 Suicidal ideations; F43.10 Post-traumatic stress disorder, unspecified; F11.21 Opioid dependence, in remission; F41.8 Other specified anxiety disorders; S51.812D Laceration without foreign body of left forearm, subsequent encounter; W26.0XXD Contact with knife, subsequent encounter; J45.909 Unspecified asthma, uncomplicated; Z87.891 Personal history of nicotine dependence; F90.9 Attention-deficit hyperactivity disorder, unspecified type; R51 Headache
CPT/HCPCS: 80305; G0009; G0480; J3030